=== PATIENT | female | born 1980 | race Caucasian/White ===

== ENCOUNTER 2018-12-22 21:41 | Emergency (ER) | payer SELFPAY, MEDICAID | END 2018-12-23 00:55 | disposition left against medical advice (07) | LOC: FTE 21:41 | DX: Z53.21 Procedure and treatment not carried out due to patient leaving prior to being seen by health care provider (principal) ==

== ENCOUNTER 2018-12-23 16:11 | Emergency (ER) | payer OTHER, MEDICAID ==
[2018-12-23 18:13] LABS: URINE PH (Dip) POC 5.5 (5.0-8.5)
[2018-12-23 18:13] LABS: URINE BLOOD (Dip) POC 3+ (NEGATIVE); URINE GLUCOSE (Dip) POC Negative (NEGATIVE); URINE KETONES (Dip) POC Negative (NEGATIVE); URINE LEUKOCYTE EST (Dip) POC Negative (NEGATIVE); URINE NITRITE (Dip) POC Negative (NEGATIVE); URINE TOTAL PROTEIN POC 2+ (NEGATIVE)
[2018-12-23 18:25] LABS: ADD MAN DIFF? NO
[2018-12-23 18:27] LABS: BASOPHILS % 0.3 % (0.0-2.0); EOSINOPHILS # 0.2 10^3/ul (0.0-0.5); EOSINOPHILS % 2.8 % (0.0-7.0); HEMATOCRIT 42.7 % (37.0-47.0); HEMOGLOBIN 14.7 g/dl (12.0-16.0); LYMPHOCYTES # 1.9 10^3/ul (0.8-2.9); LYMPHOCYTES % 29.7 % (15.0-51.0); MEAN CORPUSCULAR HEMOGLOBIN 28.6 pg (29.0-33.0); MEAN CORPUSCULAR HGB CONC 34.4 g/dl (32.0-37.0); MEAN CORPUSCULAR VOLUME 83.1 fl (82.0-101.0); MEAN PLATELET VOLUME 10.1 fl (7.4-10.4); MONOCYTE # 0.4 10^3/ul (0.3-0.9); MONOCYTES % 5.8 % (0.0-11.0); NEUTROPHIL # 3.9 10^3/ul (1.6-7.5); NEUTROPHILS % 61.1 % (39.0-77.0); PLATELET COUNT 231 10^3/UL (140-415); RED BLOOD COUNT 5.14 10^6/ul (4.20-5.40); RED CELL DISTRIBUTION WIDTH 11.8 % (11.5-14.5)
[2018-12-23 18:27] LABS: WHITE BLOOD COUNT 6.3 10^3/ul (4.8-10.8)
[2018-12-23] MEDS: SOD CHLORIDE 0.9% 1,000 ML IV (18:27)
[2018-12-23] MEDS: DIPHENHYDRAMINE 50 MG INJ IV (18:27)
[2018-12-23] MEDS: PROCHLORPERAZINE 10 MG INJ IV (18:27)
[2018-12-23 18:46] LABS: INR 0.91; PROTIME 12.4 Sec (11.9-14.9)
[2018-12-23 18:47] LABS: PARTIAL THROMBOPLASTIN TIME 34.4 Sec (23.0-35.0)
[2018-12-23 18:50] LABS: ANION GAP 9 (5-13); BLOOD UREA NITROGEN 9 mg/dl (7-20); CALCIUM 9.8 mg/dl (8.4-10.2); CARBON DIOXIDE 26 mmol/L (21-31); CHLORIDE 106 mmol/L (97-110); Estimated GFR > 60 mL/min (>60); GLUCOSE 98 mg/dl (70-220); POTASSIUM 3.8 mmol/L (3.5-5.1); SODIUM 141 mmol/L (135-144)
[2018-12-23 19:02] LABS: TROPONIN-I < 0.012 ng/ml (0.000-0.120)
== END 2018-12-23 22:28 | disposition home or self-care (01) ==
LOC: E/R 16:11
DX: R51 Headache (principal); R20.2 Paresthesia of skin; R55 Syncope and collapse; F41.1 Generalized anxiety disorder
CPT/HCPCS: 36415; 70450; 80048; 81003; 81025; 84484; 85025; 85610; 85730; 93005; 96374; 96375; 99285-25